=== PATIENT | female | born 1945 | race Caucasian/White ===

== ENCOUNTER 2016-06-12 20:24 | Emergency (ER) | payer OTHER ==
[~2016-06-12] VITALS: Ht 160 cm; Wt 96.4 kg
[~2016-06-12 20:24] MED LIST: BUSP5 PO; CIPR250T2 PO; CLON.1 PO; CLON.5 PO; LIPI40TA PO; LISI20 PO; METO50TA PO; ST JTAB PO
[2016-06-12 20:57] VITALS: BP 161/85; PULSE 73; RESP 20; TEMP 98; O2SAT 95
--- NOTE | 2016-06-12 23:38 | PD ---
HPI Chief Complaint: eyelid laceration Time Seen by Provider: 23:34 Travel History International Travel<30 days: No Contact w/Intl Traveler<30days: No Traveled to known affect area: No History of Present Illness HPI The patient is a 71-year-old female that tripped and fell at about 7:45 PM this afternoon. Her last tetanus shot was well over 10 years. She states she complains of considerable pain locally. She did not hit the eye. 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 ) Hepatitis: No Hiatal Hernia: No Hypertension: Yes Immune Disorder: No Kidney Stones: No Musculoskeletal: Yes Neurologic: Yes (CENTRAL TREMOR, BALANCE PROBLEMS) Psychiatric: Yes Reproductive: No Respiratory: No Migraines: No Myocardial Infarction: No Radiation Therapy: No Renal Failure: No Seizures: No Sickle Cell Disease: No Sleep Apnea: No Thyroid Disease: No Ulcer: No Menopausal: Yes Past Surgical History Abdominal Surgery: Yes (CHOLECYSTECTOMY) AICD: No Appendectomy: No Arteriovenous Shunt: No Cardiac Surgery: No Cholecystectomy: Yes Ear Surgery: No Endocrine Surgery: No Eye Surgery: No Genitourinary Surgery: No Gynecologic Surgery: No Insulin Pump: No Joint Replacement: No Oral Surgery: Yes (2 IMPLANTS, TOSILECTOMY) Pacemaker: No Thoracic Surgery: No Other Surgery: Yes (HEMORRHOIDECTOMT) Social History Alcohol Use: Yes (2 GLASSES WINE PER DAY) Tobacco Use: No Substance Use: No Allergies-Medications (Allergen,Severity, Reaction): Coded Allergies: Darvon (Verified Allergy, Unknown, 06/12/16) Hctz (Verified Allergy, Unknown, 06/12/16) Penicillin (Verified Allergy, Unknown, 06/12/16) Reported Meds & Prescriptions Reported Meds & Active Scripts Active Reported Coq10 (Coenzyme Q10 (Ubidecarenone)) 200 Mg Cap Fluoxetine (Fluoxetine HCl) 20 Mg Cap 20 Mg PO DAILY Calcium 600 with Vitamin D (Calcium Carbonate-Cholecalciferol) 600-400 mg-Unit Tab 1 Tab PO DAILY Latanoprost Opth Drops (Latanoprost) 0.005% Drops 1 Drop EACH EYE HS Refrigerate until opened. Timolol Opth Drops 0.5 % Soln 1 Drop EACH EYE BID Tolterodine ER (Tolterodine Tartrate) 4 Mg Cap 4 Mg PO DAILY Clonazepam 0.5 Mg Tab 0.5 Mg PO BID Atorvastatin (Atorvastatin Calcium) 20 Mg Tab 20 Mg PO HS Amlodipine (Amlodipine Besylate) 5 Mg Tab 5 Mg PO DAILY Omeprazole 20 Mg Tab 20 Mg PO DAILY Metoprolol Tartrate 100 Mg Tab 100 Mg PO BID Isosorbide Dinitrate 10 Mg Tab 10 Mg PO BID Losartan (Losartan Potassium) 25 Mg Tab 12.5 Mg PO DAILY Aspirin 81 Mg Tabdr 81 Mg PO DAILY Review of Systems Except as stated in HPI: all other systems reviewed are Neg Physical Exam Narrative GENERAL: The patient is alert, oriented 3 in moderate apparent distress with her left periorbital and frontal head pain. The vital signs show blood pressure 161/85 but otherwise normal. SKIN: Warm and dry. There is a 2.5 cm laceration over the left upper eyelid. Considerable periorbital ecchymoses are present. HEAD: Normocephalic. EYES: Pupils equal and round. No scleral icterus. No injection or drainage. ENT: No nasal bleeding or discharge. Mucous membranes pink and moist. NECK: Trachea midline. No JVD. CARDIOVASCULAR: Regular rate and rhythm. No murmur appreciated. RESPIRATORY: No accessory muscle use. Clear to auscultation. Breath sounds equal bilaterally. GASTROINTESTINAL: Abdomen soft, non-tender, nondistended. Hepatic and splenic margins not palpable. MUSCULOSKELETAL: No obvious deformities. No clubbing. No cyanosis. No edema. NEUROLOGICAL: Awake and alert. No obvious cranial nerve deficits. Motor grossly within normal limits. Normal speech. PSYCHIATRIC: Appropriate mood and affect; insight and judgment normal. Data Data Last Documented VS Vital Signs Date Time Temp Pulse Resp B/P Pulse Ox O2 Delivery O2 Flow Rate FiO2 06/13/16 00:40 74 18 180/87 96 Room Air 06/12/16 23:[address] Brain W/O Iv Contrast(Rout) (06/12/16 23:38) Tetanus/Diphtheria Tox Adult (Tetanus/Di (06/12/16 23:45) Lidocai-Epi 1%-1:100,000 Inj (Xylocaine- (06/12/16 23:45) MDM Medical Decision Making Medical Screen Exam Complete: Yes Emergency Medical Condition: Yes Medical Record Reviewed: Yes Interpretation(s) The CT of the brain shows no intracranial bleed or other acute intercranial abnormality. It does show a left forehead contusion. Incidentally noted is moderate ventriculomegaly, age indeterminate but presumably chronic. There is no evidence of transependymal flow of the CSF. Included in the differential was normal pressure hydrocephalus. Differential Diagnosis Eyelid laceration, intracranial bleed, orbital fracture Narrative Course The patient has a eyelid laceration and forehead laceration. She will return in 5 days for choose removal or immediately if she has any problems. Procedures Procedure Narrative The area was prepped with chloro prep and, under sterile technique lidocaine with epinephrine was used into the laceration edges. The wound was irrigated with saline. The laceration required trimming because of the multiple flaps of and drying skin. The laceration was sewn with 9 stitches. No deep stitches were necessary. The laceration length was 2.5 cm. The patient tolerated the procedure well. Physician Communication Physician Communication As we discussed, return in 5 days, , for suture removal. If you have any problems return immediately. Diagnosis Primary Impression: Facial laceration Additional Impression: Forehead contusion Disposition: DISCHARGE HOME Condition: Stable Tom Lozano MD Jun 12, 2016 23:37
[2016-06-12] MEDS ORDERED: TETANUS/DIPHTHERIA TOXOID ADULT 0.5 ML VIAL IM ONE (23:45)
[2016-06-12] MEDS ORDERED: LIDOCAINE 1%/EPINEPHrine 1:100,000 SOLN 20 ML VIAL INFIL ONE (23:45)
[2016-06-12 23:50] VITALS: BP 162/84; PULSE 74; RESP 18; TEMP 98; O2SAT 96
[2016-06-13] MEDS ORDERED: TOLT1CAP PO (00:04)
[2016-06-13] MEDS ORDERED: TIMO0.5S30 EACH EYE (00:04)
[2016-06-13] MEDS ORDERED: ATOR20TA15 PO (00:04)
[2016-06-13] MEDS ORDERED: COQ1200C (00:04)
[2016-06-13] MEDS ORDERED: LATA0.002 EACH EYE (00:04)
[2016-06-13] MEDS ORDERED: OMEP20TA PO (00:04)
[2016-06-13] MEDS ORDERED: CALC1TAB87 PO (00:04)
[2016-06-13] MEDS ORDERED: ASPI1TAB69 PO (00:04)
[2016-06-13] MEDS ORDERED: ISOS10TA PO (00:04)
[2016-06-13] MEDS ORDERED: LOSA25TA PO (00:04)
[2016-06-13] MEDS ORDERED: CLON0.5T PO (00:04)
[2016-06-13] MEDS ORDERED: FLUO20CA4 PO (00:04)
[2016-06-13] MEDS ORDERED: METO100T PO (00:04)
[2016-06-13] MEDS ORDERED: AMLO5TAB2 PO (00:04)
--- NOTE | 2016-06-13 00:39 | RADHPO ---
EXAM DATE/TIME: 06/13/2016 00:17 [facility] COMPARISON: No previous studies available for comparison. INDICATIONS : Mechanical fall. Left frontal head and eye trauma. RADIATION DOSE: 60.25 CTDIvol (mGy) MEDICAL HISTORY : Brain cyst. SURGICAL HISTORY : Tonsillectomy. ENCOUNTER: Initial ACUITY: 1 day PAIN SCALE: 7/10 LOCATION: Left frontal TECHNIQUE: Multiple contiguous axial images were obtained of the head. Using automated exposure control and adj ustment of the mA and/or kV according to patient size, radiation dose was kept as low as reasonably a chievable to obtain optimal diagnostic quality images. FINDINGS: CEREBRUM: There is moderate diffuse ventriculomegaly. No evidence of midline shift, mass lesion, hemorrhage or acute infarction. No extra-axial fluid collections are seen. POSTERIOR FOSSA: The cerebellum and brainstem are intact. The 4th ventricle is midline. The cerebellopontine angle i s unremarkable. EXTRACRANIAL: There is a left forehead contusion. SKULL: The calvaria is intact. No evidence of skull fracture. CONCLUSION: 1. No bleed or other acute intracranial abnormality. 2. Left forehead contusion. 3. Moderate ventriculomegaly, age indeterminate but presumably chronic. No evidence of transependymal flow of CSF. The differential would include normal pressure hydrocephalus. Joss Abreu MD on June 13, 2016 at 0:35 Board Certified Radiologist. This report was verified electronically.
[2016-06-13 00:40] VITALS: BP 180/87; PULSE 74; RESP 18; O2SAT 96
== END 2016-06-13 01:20 | disposition home or self-care (01) ==
LOC: PHED 20:24
DX: S00.83XA Contusion of other part of head, initial encounter (principal); E78.00 Pure hypercholesterolemia, unspecified; K21.9 Gastro-esophageal reflux disease without esophagitis; I10 Essential (primary) hypertension; Z23 Encounter for immunization; S00.12XA Contusion of left eyelid and periocular area, initial encounter; W18.09XA Striking against other object with subsequent fall, initial encounter; Y99.8 Other external cause status
CPT/HCPCS: 12011; 70450; 90471; 90714